=== PATIENT | female | born 1985 | race Caucasian/White ===

== ENCOUNTER 2017-08-22 19:12 | Emergency (ER) | payer OTHER ==
[~2017-08-22] VITALS: Ht 162.6 cm; Wt 59.0 kg
[~2017-08-22 19:12] MED LIST: CORTISPORIN OTI10 M2 OTIC; IBUPROFEN 800800 M1 PO
[2017-08-22] MEDS ORDERED: ZPAK PO (19:35)
[2017-08-22] MEDS ORDERED: PHENERGAN 25 MG25 M1 PO (19:35)
[2017-08-22 19:47] VITALS: BP 139/96
== END 2017-08-22 19:48 | disposition home or self-care (01) ==
LOC: ER 19:12
DX: H66.92 Otitis media, unspecified, left ear (principal); R11.2 Nausea with vomiting, unspecified; F17.210 Nicotine dependence, cigarettes, uncomplicated; F10.99 Alcohol use, unspecified with unspecified alcohol-induced disorder; Z85.6 Personal history of leukemia; Z91.040 Latex allergy status; Z88.0 Allergy status to penicillin

== ENCOUNTER 2017-08-27 11:43 | Emergency (ER) | payer OTHER ==
[~2017-08-27] VITALS: Ht 162.6 cm; Wt 56.7 kg
[~2017-08-27 11:43] MED LIST changes: +PHENERGAN 25 MG25 M1 PO; +ZPAK PO
[2017-08-27] MEDS ORDERED: NOHOMEMEDICATIONS (12:09)
[2017-08-27] MEDS ORDERED: MOBIC15 MG PO (12:42)
[2017-08-27] MEDS ORDERED: FLEXERIL PO (12:42)
[2017-08-27] MEDS ORDERED: HYDROCODONE-AP1 EAC6 PO (12:42)
[2017-08-27 13:09] VITALS: BP 115/77
== END 2017-08-27 13:10 | disposition home or self-care (01) ==
LOC: ER 11:43
DX: M54.41 Lumbago with sciatica, right side (principal); F17.210 Nicotine dependence, cigarettes, uncomplicated; F10.99 Alcohol use, unspecified with unspecified alcohol-induced disorder; F12.10 Cannabis abuse, uncomplicated; Z88.0 Allergy status to penicillin; Z91.040 Latex allergy status

== ENCOUNTER 2017-12-13 18:57 | Emergency (ER) | payer OTHER ==
[~2017-12-13] VITALS: Ht 162.6 cm; Wt 65.8 kg
[~2017-12-13 18:57] MED LIST changes: +CARAFATE 1 GM TA1 GM PO; +FLEXERIL PO; +HYDROCODONE-AP1 EAC6 PO; +MOBIC15 MG PO; +NOHOMEMEDICATIONS; +OMEPRAZOLE20 M1 PO; +ULTRAM 50MG TAB50 MG PO
[2017-12-13] MEDS ORDERED: MEDROLDOSEPACK PO (19:21)
[2017-12-13] MEDS ORDERED: MOBIC7.5 MG PO (19:21)
[2017-12-13] MEDS ORDERED: ULTRAM 50MG TAB50 MG PO (19:21)
[2017-12-13 19:54] LABS: URINE BILIRUBIN NEGATIVE (Negative); URINE BLOOD 1+ (Negative); URINE CLARITY CLEAR; URINE COLOR YELLOW; URINE GLUCOSE-RANDOM* NEGATIVE (Negative); URINE KETONES NEGATIVE (Negative); URINE LEUKOCYTES-REFLEX NEGATIVE (Negative); URINE NITRITE-REFLEX NEGATIVE (Negative); URINE PROTEIN (DIPSTICK) NEGATIVE (Negative); URINE UROBILINOGEN 0.2 E.U./dl (0.2-1.0)
[2017-12-13 20:00] LABS: SQUAMOUS >10 Many /LPF (0-3)
[2017-12-13 20:01] LABS: CASTS None Seen /LPF (None Seen); URINE RBC 0-2 Rare /HPF (0-2); URINE WBC-REFLEX 0-5 Rare /HPF (0-5)
[2017-12-13 20:02] LABS: CRYSTALS None Seen /LPF (None Seen)
[2017-12-13 20:09] LABS: ABSOLUTE NEUTROPHILS 3.5 thou/uL (1.4-8.2); BASOPHILS 0.8 % (0.0-2.0); HEMATOCRIT 39.8 % (37.0-47.0); HEMOGLOBIN 13.8 gm/dL (12.0-15.0); LYMPHOCYTES 34.6 % (24.0-44.0); MCH 30.4 pg (26.0-34.0); MCHC 34.7 g/dL (28.0-37.0); MCV 87.6 fL (80.0-100.0); MONOCYTES 8.2 % (1.0-8.0); PLATELET COUNT 175 thou/uL (150-400); POLYS 55.4 % (36.0-66.0); RBC 4.54 mil/uL (4.20-5.00); RDW 13.7 % (10.5-14.5); WBC 6.3 thou/uL (4.0-11.0)
[2017-12-13 20:15] LABS: CREATININE 0.9 mg/dL (0.6-1.0); POTASSIUM 3.9 mmol/L (3.5-5.1)
[2017-12-13] MEDS ORDERED: ZOFRAN ODT4 MG PO (20:40)
== END 2017-12-13 22:31 | disposition home or self-care (01) ==
LOC: ER 18:57
PROVIDERS: Emergency Medicine
DX: R11.2 Nausea with vomiting, unspecified (principal); M54.41 Lumbago with sciatica, right side; F17.210 Nicotine dependence, cigarettes, uncomplicated; Z91.040 Latex allergy status; Z88.0 Allergy status to penicillin